=== PATIENT | male | born 1995 | race Caucasian/White ===

== ENCOUNTER → 2019-12-10 | Outpatient (CLI) | payer BC ==
--- NOTE | 2019-12-10 10:04 | KCIC ---
MRI Lumbar Spine without contrast History: Low back pain, radiculopathy, new severe pain into the left lower extremity starting this week Technique: Multiplanar, multi sequential noncontrast MR imaging was performed of the lumbar spine. Comparison: None Findings: Lumbar vertebral body stature is mostly maintained than some small Schmorl's nodes. Conus terminates at L1-2. There is no significant focal marrow edema. There is mild degenerative disc disease greater on the left at L3-4, also mild narrowing of the L1-L2 intervertebral disc space likely in part on developmental basis. There is likely small nerve root sleeve cyst along the right extraforaminal S1 nerve root. There is mild dextroscoliosis centered near L2. L1-L2: This level was not included on the axial images. Spinal canal and neural foramina are adequate. L2-L3: Spinal canal and neural foramina are adequate. There is mild facet hypertrophic change. L3-L4: Spinal canal and neural foramina are adequate. L4-L5: Spinal canal and neural foramina are adequate. L5-S1: Spinal canal is adequate. There is minimal disc osteophyte complex eccentric to the inferior neural foramina, left greater than right. Better seen on axial images such as images 23-25, there is suspected small protrusion/contained extrusion in the distal aspect of the left neural foramen and proximal extraforaminal region about 4 to 5 mm transverse by 3 mm AP. There is moderate to severe narrowing of the more distal left neural foramen, with contact of the undersurface exiting left L5 nerve root in the neural foramen and proximal extraforaminal region. There is very mild inferior narrowing of the right neural foramen by disc osteophyte complex. Impression: 1. There is disc osteophyte complex more eccentric to the inferior left L5-S1 neural foramen with suspected small protrusion/contained extrusion in the distal neural foramen and proximal extraforaminal region, moderate to severe narrowing of the more distal left neural foramen. There is contact of the exiting left L5 nerve root in the distal neural foramen and proximal extraforaminal region. 2. There is no significant lumbar spinal stenosis. 3. There is mild degenerative disc disease at L3-4. 4. There is mild lumbar dextroscoliosis. Electronically signed by: Vince Mcconnell MD (12/10/2019 10:01 AM) [place] [id number]
== END | disposition home or self-care (01) ==
LOC: KCIC MRI 08:22
PROVIDERS: ATTEND Physician Assistant
DX: M51.16 Intervertebral disc disorders with radiculopathy, lumbar region (principal); M48.061 Spinal stenosis, lumbar region without neurogenic claudication; M41.86 Other forms of scoliosis, lumbar region; M25.78 Osteophyte, vertebrae
CPT/HCPCS: 72148